=== PATIENT | male | born 1975 | race Caucasian/White ===

== ENCOUNTER 2018-12-14 21:02 | Emergency (ER) | payer MEDICAID ==
[~2018-12-14] VITALS: Ht 165.1 cm; Wt 109.1 kg
[~2018-12-14 21:02] MED LIST: AMOX500C6; BENA10TA PO; IBUP-1542; IBUP-1542 PO; INSU100V18; MTF1000T; NPH,100V10; SIMV40TA3
[2018-12-14 21:15] VITALS: Ht 165.1 cm; Wt 109.1 kg
--- NOTE | 2018-12-14 22:19 | ERD ---
ER Documentation Chief Complaint Chief Complaint left flank pain HPI The patient is a 43-year-old male, presenting to the ER because of acute left flank pain that began around 9 PM, non-provoked, denies similar symptoms previously, denies fever, chills, neck pain, chest pain, dyspnea, come planes of constipation, denies dysuria, vomiting. The pain is worse with movement. He does not smoke, drinks socially, denies illicit drug Medical history: Hypertension, diabetes mellitus, dyslipidemia, obesity Past surgical history: None ROS All systems reviewed and are negative except as per history of present illness. Medications Home Meds Active Scripts Ibuprofen* (Motrin*) 600 Mg Tab, 600 MG PO Q6, #30 TAB Prov:IMELDA PRADHAN Isabelle 08/29/15 Reported Medications Benazepril Hcl* (Lotensin*) 10 Mg Tablet, PO DAILY 08/06/12 Nph, Human Insulin Isophane* (Novolin N*) 100 U/Ml Vial 07/27/10 Insulin Lispro (Humalog) 100 U/Ml Vial 07/27/10 Amoxicillin* (Amoxil*) 500 Mg Capsule 07/27/10 Ibuprofen* (Ibuprofen*) 600 Mg Tablet 07/27/10 Simvastatin (Simvastatin) 40 Mg Tablet 07/27/10 Metformin* (Glucophage*) 1,000 Mg Tablet 07/27/10 Allergies Allergies: Coded Allergies: No Known Allergy (Verified , 03/12/18) PMhx/Soc History of Surgery: No Anesthesia Reaction: No Hx Neurological Disorder: No Hx Respiratory Disorders: No Hx Cardiac Disorders: Yes (Hypertension, hyperlipidemia, diabetes) Hx Psychiatric Problems: No Hx Miscellaneous Medical Probl: No Hx Alcohol Use: No Hx Substance Use: No Hx Tobacco Use: No Physical Exam Vitals Vital Signs Date Temp Pulse Resp B/P (MAP) Pulse Ox O2 O2 Flow FiO2 Time Delivery Rate 12/14/18 98.7 114 20 117/75 97 Room Air 22:44 (89) 12/14/18 98.7 107 20 153/88 97 21:15 (109) Physical Exam Const: No acute distress. Head: Atraumatic. Eyes: Normal Conjunctiva. ENT: Normal External Ears, Nose and Mouth. Neck: Full range of motion. No meningismus. Resp: Clear to auscultation bilaterally. Cardio: Regular rate and rhythm. Abd: Soft, obese, normal bowel sounds, mild left flank tenderness, no rigidity/rebound/CVA tenderness Skin: No petechiae or rashes. Back: No midline or flank tenderness. Ext: No cyanosis, or edema. Neur: Awake and alert. No focal deficit Psych: Normal Mood and Affect. Result Diagram: 12/14/18 2255 12/14/18 2255 Results 24 hrs Laboratory Tests Test 12/14/18 22:55 12/14/18 23:02 White Blood Count 8.9 10^3/ul Red Blood Count 4.97 10^6/ul Hemoglobin 14.6 g/dl Hematocrit 43.3 % Mean Corpuscular Volume 87.1 fl Mean Corpuscular Hemoglobin 29.4 pg Mean Corpuscular Hemoglobin Concent 33.7 g/dl Red Cell Distribution Width 12.0 % Platelet Count 189 10^3/UL Mean Platelet Volume 11.5 fl Immature Granulocytes % 0.300 % Neutrophils % 52.6 % Lymphocytes % 38.1 % Monocytes % 6.9 % Eosinophils % 1.7 % Basophils % 0.4 % Nucleated Red Blood Cells % 0.0 /100WBC Immature Granulocytes # 0.030 10^3/ul Neutrophils # 4.7 10^3/ul Lymphocytes # 3.4 10^3/ul Monocytes # 0.6 10^3/ul Eosinophils # 0.2 10^3/ul Basophils # 0.0 10^3/ul Nucleated Red Blood Cells # 0.0 10^3/ul Sodium Level 138 mmol/L Potassium Level 3.4 mmol/L Chloride Level 101 mmol/L Carbon Dioxide Level 26 mmol/L Anion Gap 11 Blood Urea Nitrogen 14 mg/dl Creatinine 0.73 mg/dl Est Glomerular Filtrat Rate mL/min > 60 mL/min Glucose Level 219 mg/dl Calcium Level 9.0 mg/dl Total Bilirubin 0.9 mg/dl Direct Bilirubin 0.00 mg/dl Indirect Bilirubin 0.9 mg/dl Aspartate Amino Transf (AST/SGOT) 19 IU/L Alanine Aminotransferase (ALT/SGPT) 25 IU/L Alkaline Phosphatase 113 IU/L Total Protein 7.9 g/dl Albumin 4.3 g/dl Globulin 3.60 g/dl Albumin/Globulin Ratio 1.19 Lipase 78 U/L Bedside Urine pH (LAB) 6.0 Bedside Urine Protein (LAB) 1+ Bedside Urine Glucose (UA) 0.50% Bedside Urine Ketones (LAB) Negative Bedside Urine Blood Trace-intact Bedside Urine Nitrite (LAB) Negative Bedside Urine Leukocyte Esterase (L Negative Current Medications Medications Dose Sig/Sebastien Start Time Status Last (Trade) Ordered Route PRN Stop Time Admin Dose Reason Admin Ketorolac 15 mg ONCE STAT 12/14/18 DC 12/14/18 Tromethamine IV 22:39 22:50 (Toradol) 12/14/18 22:40 Procedures/MDM [place] [id number] Radiology Main Line: [phone] DIAGNOSTIC IMAGING REPORT Patient: GLORIA OTT : 1975 Age: 43 Sex: M MR #: [id number] DOS: 12/14/187 Ordering MD: LYNNE KLINE MD Location: E/R Room/Bed: PROCEDURE: CT Abdomen and Pelvis Without Intravenous Contrast CLINICAL INDICATION: Left flank pain. TECHNIQUE: Axial computed tomography images of the abdomen and pelvis without intravenous contrast. Sagittal and coronal reformatted images were created and reviewed. CTDIvol (mGy) = 22.45; total DLP (mGy-cm) = 1466.48. This CT exam was performed using one or more of the following dose reduction techniques: automated exposure control, adjustment of the mA and/or kV according to patient size, and/or use of iterative reconstruction technique. DICOM images are available. COMPARISON: None FINDINGS: LIMITATIONS: The study is mildly limited by respiratory motion artifact. LUNG BASES: Unremarkable. No mass. No consolidation. ABDOMEN: LIVER: Unremarkable. GALLBLADDER AND BILE DUCTS: Unremarkable. No calcified stones. No ductal dilation. PANCREAS: Unremarkable. No ductal dilation. SPLEEN: Unremarkable. No splenomegaly. ADRENALS: Unremarkable. No mass. KIDNEYS AND URETERS: The kidneys are morphologically normal. No nephrolithiasis. No hydronephrosis. No obstructive uropathy. STOMACH AND BOWEL: Unremarkable. No obstruction. No mucosal thickening. PELVIS: APPENDIX: No findings to suggest acute appendicitis. BLADDER: The urinary bladder is unremarkable in appearance. No stones. REPRODUCTIVE: Unremarkable as visualized. ABDOMEN and PELVIS: INTRAPERITONEAL SPACE: Unremarkable. No free air. No significant fluid collection. BONES/JOINTS: No acute fracture. No dislocation. SOFT TISSUES: Unremarkable. VASCULATURE: Unremarkable. LYMPH NODES: Unremarkable. No enlarged lymph nodes. IMPRESSION: 1. The study is mildly limited by respiratory motion artifact. 2. The kidneys are morphologically normal. No nephrolithiasis. No hydronephrosis. No obstructive uropathy. 3. No acute abnormality demonstrated in the abdomen and pelvis. RPTAT: [facility] Basilio Dhillon Physician Clinical Rehabilitation Liaison Date Time Electronically viewed and signed by Basilio Dhillon Physician Clinical Rehabilitation Liaison on 12/15/2018 00:03 RmC/ CC: LYNNE KLINE MD [id number] MEDICAL MAKING DECISION: The patient is a 43-year-old male, presenting with acute left flank of unclear etiology, acute hypokalemia. he was treated with Tor adol 15 mg IV for pain, potassium chloride 40 milliequivalents p.o. for acute hypokalemia with good response, is stable for outpatient follow-up The differential diagnoses considered include but are not limited to cholelithiasis, cholecystitis, choledocholithiasis, cholangitis, pancreatitis, hepatitis, gastritis, peptic ulcer disease, gastric ulcer, appendicitis, cystitis, diverticulitis, partial small bowel obstruction. Departure Diagnosis: Primary Impression: Left flank pain Additional Impression: Hypokalemia Condition: Good Comments He was discharged with Motrin I discussed the findings with the patient. I advised the patient to follow-up with the primary physician in about 2-3 days, sooner if needed and return if any concern. Disclaimer: Inadvertent spelling and grammatical errors are likely due to EHR/dictation software use and do not reflect on the overall quality of patient care. Also, please note that the electronic time recorded on this note does not necessarily reflect the actual time of the patient encounter. LYNNE KLINE MD Dec 14, 2018 22:19
[2018-12-14] MEDS ORDERED: KETOROLAC 15 MG INJ IV STA (22:39)
[2018-12-15] MEDS ORDERED: POTASSIUM CHLORIDE (SR) 20 MEQ TAB PO STA (00:28)
[2018-12-15] MEDS ORDERED: IBUP-1542 PO (00:31)
[2018-12-15 00:43] VITALS: BP 127/72; PULSE 76; RESP 22
== END 2018-12-15 00:45 | disposition home or self-care (01) ==
LOC: E/R 21:02
DX: R10.9 Unspecified abdominal pain (principal); I10 Essential (primary) hypertension; E11.9 Type 2 diabetes mellitus without complications; E66.9 Obesity, unspecified; E87.6 Hypokalemia; Z68.41 Body mass index [BMI] 40.0-44.9, adult; Z79.4 Long term (current) use of insulin
CPT/HCPCS: 36415; 74176; 80053; 81003; 83690; 85025; 96374; J1885; Z7502; Z7610